=== PATIENT | male | born 1990 | race Caucasian/White ===

== ENCOUNTER 2016-10-03 06:58 | Emergency (ER) | payer SELFPAY ==
[~2016-10-03] VITALS: Ht 180.3 cm; Wt 140.0 kg
[2016-10-03] MEDS ORDERED: ONDANSETRON ODT 4 MG PO ONE (07:30)
[2016-10-03] MEDS ORDERED: KETOROLAC 30 MG/1 ML IM ONE (07:30)
[2016-10-03] MEDS ORDERED: HYDROmorphone 1 MG/ML, 1ML IM ONE (07:30)
[2016-10-03] MEDS ORDERED: PLEASE ENTER ALLERGIES MC SCH ×2 (07:30)
[2016-10-03] MEDS ORDERED: METHOCARBAMOL 750 MG TABLET PO ONE (07:30)
[2016-10-03] MEDS ORDERED: HYDROmorphone 1 MG/ML, 1ML ONE (07:37)
[2016-10-03] MEDS ORDERED: ONDANSETRON ODT 4 MG ONE (07:38)
[2016-10-03] MEDS ORDERED: METHOCARBAMOL 750 MG TABLET ONE (07:38)
[2016-10-03] MEDS ORDERED: KETOROLAC 30 MG/1 ML ONE (07:38)
[2016-10-03 08:20] VITALS: BP 135/93
== END 2016-10-03 08:23 | disposition home or self-care (01) ==
LOC: ED 08:17
DX: S39.012A Strain of muscle, fascia and tendon of lower back, initial encounter (principal); X58.XXXA Exposure to other specified factors, initial encounter; Y93.89 Activity, other specified; Y92.89 Other specified places as the place of occurrence of the external cause; Y99.8 Other external cause status
CPT/HCPCS: 72110; 96372; 99284; J1170; J1885; Q0162